=== PATIENT | male | born 1980 | race Caucasian/White ===

== ENCOUNTER 2024-03-07 08:10 | Emergency (ER) | payer OTHER ==
[~2024-03-07] VITALS: Ht 175.3 cm; Wt 93.2 kg
[2024-03-07] MEDS ORDERED: NS 1,000 ML IV SCH (09:30)
[2024-03-07 10:19] LABS: URINE APPEARANCE CLOUDY (CLEAR); URINE COLOR YELLOW (YELLOW)
[2024-03-07 10:20] LABS: URINE BILIRUBIN 1+ (NEGATIVE); URINE BLOOD TRACE-INTACT (NEGATIVE); URINE GLUCOSE NEGATIVE (NEGATIVE); URINE KETONE TRACE (NEGATIVE); URINE LEUKOCYTE ESTERASE NEGATIVE (NEGATIVE); URINE NITRATE NEGATIVE (NEGATIVE); URINE PROTEIN(semi-quant) 1+ (NEGATIVE)
[2024-03-07 10:22] LABS: URINE MUCUS PRESENT (NOT PRESENT)
[2024-03-07 10:35] LABS: BASO # 0.02 K/mm3 (0.02-0.10); EOS # 0.04 K/mm3 (0.04-0.40); EOS % 0.7 % (0.0-4.0); HEMATOCRIT 49.8 % (42.0-52.0); HEMOGLOBIN 16.9 g/dL (13.5-18.0); MEAN CELL VOLUME 92 fl (78-100); MEAN CORPUSCULAR HEMOGLOBIN 31 pg (27-31); MEAN CORPUSCULAR HGB CONC 34 g/dL (33-37); MEAN PLATELET VOLUME 9.1 fl (7.4-10.4); MONO # 0.52 K/mm3 (0.20-0.80); NEU # 4.57 K/mm3 (1.40-6.50); PLATELET COUNT 232 K/mm3 (130-400); RED BLOOD COUNT 5.44 M/mm3 (4.20-5.60); RED CELL DISTRIBUTION WIDTH 12.9 % (11.5-14.5); WHITE BLOOD COUNT 6.1 K/mm3 (4.8-10.8)
[2024-03-07 10:40] LABS: ALBUMIN 4.7 g/dL (3.5-5.0)
[2024-03-07 10:42] LABS: CALCIUM 9.4 mg/dL (8.3-10.5)
[2024-03-07 10:43] LABS: TOTAL PROTEIN 7.8 g/dL (6.4-8.3)
[2024-03-07 11:16] LABS: TOTAL BILIRUBIN 0.4 mg/dL (0.2-1.2)
[2024-03-07] MEDS ORDERED: ZOFRAN ODT4 MG PO (11:47)
[2024-03-07 12:15] VITALS: BP 139/82
== END 2024-03-07 12:35 | disposition home or self-care (01) ==
LOC: ED 08:10
PROVIDERS: Nurse Practitioner Family
DX: K52.9 Noninfective gastroenteritis and colitis, unspecified (principal)
CPT/HCPCS: J7030